=== PATIENT | male | born 1935 | race Caucasian/White ===

== ENCOUNTER 2019-05-16 09:29 | Inpatient (IN) | payer MEDICARE, BC ==
[2019-05-16] MEDS ORDERED: Magnesium Hydroxide LIQ* 30 ML UDC PO PRN (12:00)
[2019-05-16] MEDS ORDERED: Acetaminophen TAB* 325 MG PO PRN (12:00)
[2019-05-16] MEDS ORDERED: Senna TAB 8.6 mg* TAB PO PRN (12:00)
[2019-05-16] MEDS: Carbidopa/Levodop 25/100 MG TAB(*) PO SCH ×2 (12:29→17:30)
[2019-05-16] MEDS: Cholecalciferol TAB* 1000 UNITS PO SCH (12:29)
[2019-05-16] MEDS: Cyanocobalamin TAB* 500 MCG PO SCH (17:30)
[2019-05-16] MEDS: ATORVASTATIN 10 MG PO SCH (20:09)
[2019-05-16] MEDS: Heparin VIAL(*) 5000 UNITS/ML VIAL (FIVE THOUSAND) SUBCUT SCH (20:10)
[2019-05-16] MEDS: Docusate CAP* 100 MG PO SCH (20:10)
--- NOTE | 2019-05-16 22:03 | HP ---
ADMISSION HISTORY AND PHYSICAL: DATE OF ADMISSION: 05/16/19 HISTORY OF ILLNESS: Fernando Levi is an 83-year-old white male. He has a history of Parkinson's disease which he has had for at least the past 15 years. He also has a history of coronary artery disease. The patient was admitted to the hospital on 05/10/19. He was admitted and tested positive for influenza. He was placed on Tamiflu, which was adjusted for his renal function. He was continued on that for 5 days. He remained on his usual regimen of carbidopa and levodopa but was in bed for a prolonged period of time. He has baseline thrombocytopenia, which worsened with the illness but then seemed to improve. He did receive IV hydration. He was noted to have some difficulty with kidney function while on the acute service. His creatinine is elevated at baseline but when he came in his creatinine was 1.61, which improved to 1.24 after hydration. The patient was weaker than usual and had more balance issues because of his prolonged period of bed rest. He was felt to have physical therapy and occupational therapy needs. He is now being admitted for inpatient rehab so he might return to independent living. PAST MEDICAL HISTORY: Significant for Parkinson's disease. He also has a history of osteopenia, hyperlipidemia, prostatic hypertrophy, and a coronary artery bypass graft in 2010. He follows with Dr. Becker for his heart disease. CURRENT MEDICATIONS: Include: 1. Sinemet. 2. Amantadine. 3. Baby aspirin every day. 4. Lipitor. ALLERGIES: The patient has no known drug allergies. FAMILY HISTORY: Noncontributory. He did have a father who had a history of coronary artery disease. SOCIAL HISTORY: He lives in [facility] with his . It is a one- level condo. He is a retired psychologist. REVIEW OF SYSTEMS: No current shortness of breath or chest pain. PHYSICAL EXAMINATION VITAL SIGNS: The patient's temperature is 97.6, blood pressure is 100/48, pulse 56, respirations 18. HEENT: He does have Parkinson-like facies. NECK: Supple. LUNGS: Sounded clear to auscultation bilaterally. HEART: Heart sounds are regular. S1 and S2 are audible. ABDOMEN: Soft and nontender. EXTREMITIES: He did have perhaps some cogwheeling. Peripheral pulses were intact. NEUROLOGIC: The patient was awake, alert, oriented. Muscle strength appeared to be close to 5/5. He did have some difficulty with tremor. FUNCTIONAL EXAM: He transfers with contact guard to min assist. ASSESSMENT: 1. Parkinson's disease. 2. Influenza. PLAN: We are going to integrate him into a comprehensive and therapeutic rehab program with the following goals: 1. Physical Therapy will work with the patient. They are going to work on functional transfer training, ambulation training with a walker, work on his balance. 2. Occupational Therapy will see the patient, work on his activities of daily living including toileting and toilet transfers. 3. Heparin for DVT prophylaxis. 4. We will continue with Sinemet and his amantadine for his Parkinson's disease. 5. Continue aspirin and Lipitor for coronary artery disease. 6. His bowels will be regulated. 7. Advance directives: The patient has a MOLST. He has DNR. 8. Cash Sales Audit Clerk will be closely involved to make sure that any services and equipment that patient requires are in place prior to discharge. 9. Family training as appropriate. 10. Home with appropriate services. ESTIMATED LENGTH OF STAY: 7 to 10 days. [id number]/CPS #: [id number] MICHELLE
[2019-05-17] MEDS: Heparin VIAL(*) 5000 UNITS/ML VIAL (FIVE THOUSAND) SUBCUT SCH ×2 (07:35→20:44)
[2019-05-17] MEDS: AMANTADINE 100 MG PO SCH (07:37)
[2019-05-17] MEDS: Aspirin EC TAB* 81 MG TAB.EC PO SCH (07:38)
[2019-05-17] MEDS: Carbidopa/Levodop 25/100 MG TAB(*) PO SCH ×3 (07:38→17:21)
[2019-05-17] MEDS: Docusate CAP* 100 MG PO SCH ×2 (07:39→19:34)
--- NOTE | 2019-05-17 12:27 | PMRUTEAM ---
PMRU: Team Meeting Current Status: Physical Therapy: Current Status Current Rolling Status Supervision/Touching Current Supine <-> Sit Status Supervision/Touching Current Sit <-> Stand Status Partial/Moderate Current Bed <-> Chair Status Partial/Moderate Transfer/Bed Mobility Rolling Walker Recommended Devices Current Picking Up Object Partial/Moderate Status Current Car Transfer Status Partial/Moderate Current Ambulation Assistance Partial/Moderate Status Ambulation Assistive Device Rolling Walker Ambulation Conditions Two or More Turns,Uneven Surfaces Current Ambulation Distance 120' Current Wheelchair Propulsion Not Applicable Ability Status Current Stair Climbing Status Supervision/Touching Stair Climbing Assistive Left Railing,Right Railing Devices Number of Stairs Climbed 10 Current Curb Assistance Status Supervision/Touching Occupational Therapy: Current Status Current Upper Body Dressing Partial/Moderate Status Current Lower Body Dressing Partial/Moderate Status Current Footwear Status Partial/Moderate Current Grooming Status Setup or Clean-up Assist Current Toileting Status Supervision/Touching Current Toilet Transfer Status Supervision/Touching Current Eating Status Setup or Clean-up Assist Nursing: Current Status Skin Deviations [Bilateral Other Buttocks] Skin Deviation Description [ intact Bilateral Buttocks] Bladder Current Status voiding in br Bowel Current Status last bm 05/16/19. declined colace Nutrition Current Status appetite good Medication Current Status no pain meds given. requests sinemet to given on time Rec Therapy: Current Status Summary of Assessment and Recreation therapy services will be introduce Clinical Impression today 05/17/19 Nutrition: Current Status Monitoring new adm; full nutrition assessment planned 05/23 per NDS protocol, unless otherwise requested. Tentative nutrition goals as outlined below. Goals: Physical Therapy: Goals Goals to Be Accomplished in ( 7-10 Days) Goal: Rolling Assistance Independent Goal Supine <-> Sit Status Independent Goal Sit <-> Stand Status Independent Goal Bed <-> Chair Status Independent Transfer/Bed Mobility Rolling Walker Recommended Devices Goal: Picking Up Object Independent Goal: Car Transfer Status Setup or Clean-up Assist Goal: Ambulation Assistance Independent Ambulation Assistive Devices Rolling Walker Ambulation Distance (ft) 150' Goal: Wheelchair Propulsion Not Applicable Ability Goal: Stairs Assistance Independent Stairs Recommended Devices Two Rails Number of Stairs 12 Goal: Curb Assistance Independent Goal: Home Exercise Program Independent Assistance Occupational Therapy: Goals Goals to be Completed in (Days 7 ) Goal Upper Body Dressing Independent Routine Goal Lower Body Dressing Independent Routine Goal Footwear Status Independent Goal Bathing Routine (OT) Supervision/Touching Goal Grooming Routine Independent Goal Toilet Hygiene and Independent Clothing Management Routine Goal Toilet Transfer Routine Independent Goal Functional Transfers for Independent ADL Goal Feeding Routine Independent Nutrition: Goals Intervention Goals 1. adequate po intake to support hydration and lean body mass without wt loss 2. pt will tolerate least-restrictive diet texture without difficulty chewing or swallowing 3. maintain serum electrolytes WNL 4. regulation of bowel pattern; no c/o constipation (or diarrhea) Nursing: Goals Bladder Goal independent Bowel Goal independent. Nutrition Goal 100% of all meals consumed Medication Goal independent Care Plan: Care Plan ADL's - Improve/Maintain Start: 05/16/19 11:53 Freq: DAILY@699,0 Status: Active Target: 05/17/19 Protocol: Activity Type Activity Date Activity User E-Sign Co-Sign Detail Recorded Client Recorded Date Recorded By Document 05/16/19 15:48 [id number] [id number] 05/16/19 15:48 [id number] 05/16/19 15:48 PMRU Outcome: ADL's/ADL Transfers Orders/Interventions Occupational Therapy Evaluation & Treatment Communication Tool in Patient Room Device Yes Address Deficits Secondary To: deconditioning, h/o Parkinson' s Patient to receive OT 5x/wk for 60-120 Therex min/day Self Care Management Group Therapy Neuromuscular ReEducation UE/LE ADL's with Assist Yes: Rolanda except S for bathing ADL Transfers with Assist Yes: Rolanda Toileting: Transfers,Clothing Management Yes: Rolanda ,Hygeine w/Assist Other Outcome/Goals Pt participated well in treatment session, reports normally using 4# dumbells when working out, however reported feeling very challenged during session using 2# dumbells. Will attempt to work pt back to normal routine as pt able to tolerate. Progression Toward Outcome/Goals Goal Initiation Cardiovascular- Improve/Maintain Start: 05/16/19 11:41 Freq: DAILY@699,0 Status: Active Target: 05/23/19 Protocol: Activity Type Activity Date Activity User E-Sign Co-Sign Detail Recorded Client Recorded Date Recorded By Document 05/17/19 08:00 [id number] 05/17/19 09:21 [id number] 05/17/19 08:00 PMRU Outcome: Cardiovascular Vital Signs q Shift for 48hrs Then BID Yes Daily Weight Ordered No Current Cardiovascular Outcome/Goal Maintain/ Achieve Baseline HR, BP , Perfusion Improve HR Within Prescribed Parameters Maintain/ Improve Perfusion Free of Abnormal Cardiac Symptoms Progression Toward Outcome/Goal Progressing DVT Prophylaxis- Improve/Maintain Start: 05/16/19 11:41 Freq: DAILY@0700,1900 Status: Active Target: 05/23/19 Protocol: Activity Type Activity Date Activity User E-Sign Co-Sign Detail Recorded Client Recorded Date Recorded By Document 05/17/19 08:00 [id number] 05/17/19 09:21 [id number] 05/17/19 08:00 PMRU Outcome: DVT Prophylaxis Current DVT Outcome/Goals Remains Free of DVT Complies with DVT Prophylaxis /Treatment Demonstrates Knowledge of DVT Prevention/ Treatment TEDS Stockings on Every AM, Off at HS Other DVT Other Outcome/Goals heparin given this am per order Progression Toward Outcome/Goals Progressing Discharge Planning - Improve/Maintain Start: 05/16/19 11:41 Freq: DAILY@[id number] Status: Active Target: 05/23/19 Protocol: Activity Type Activity Date Activity User E-Sign Co-Sign Detail Recorded Client Recorded Date Recorded By Document 05/17/19 08:00 [id number] 05/17/19 09:21 [id number] 05/17/19 08:00 PMRU Outcome: Discharge Planning Current Discharge Planning Outcome/Goals Demonstrates Understanding of Discharge Plan Homecare Referral - See Comment Progression Toward Outcome/Goals Progressing Education-Improve/Maintain Start: 05/16/19 11:41 Freq: DAILY@[id number] Status: Active Target: 05/23/19 Protocol: Activity Type Activity Date Activity User E-Sign Co-Sign Detail Recorded Client Recorded Date Recorded By Document 05/17/19 08:00 [id number] 05/17/19 09:21 [id number] 05/17/19 08:00 PMRU Outcome: Education Current Education Outcome/Goals Demonstrate/ Verbalize Understanding of Written Discharge Instructions Demonstrates Skills Encourage Questions Progression Toward Outcome/Goals Progressing /GI-Improve/Maintain Start: 05/16/19 11:41 Freq: DAILY@07,1900 Status: Active Target: 05/23/19 Protocol: Activity Type Activity Date Activity User E-Sign Co-Sign Detail Recorded Client Recorded Date Recorded By Document 05/17/19 08:00 [id number] 05/17/19 09:21 [id number] 05/17/19 08:00 PMRU Outcome: Genitourinary/ Gastrointestinal Current Gastrointestinal Outcome/Goals Maintain/ Achieve Bowel Regularity in Accordance with Pt's Baseline Remain Free of Emesis Prevent Constipation Laxatives as Ordered Other GI Outcome/Goals declined bowel meds Progression Toward Outcome/Goals Progressing Current Genitourinary Outcome/Goals Maintain/ Achieve Urinary Continence Maintain/ Achieve Adequate Urinary Output Remain Free of Hospital- Acquired UTI Progression Toward Outcome/Goals Progressing Medication Administration Start: 05/16/19 11:41 Freq: DAILY@[id number] Status: Active Target: 05/23/19 Protocol: Activity Type Activity Date Activity User E-Sign Co-Sign Detail Recorded Client Recorded Date Recorded By Document 05/17/19 08:00 [id number] 05/17/19 09:21 [id number] 05/17/19 08:00 PMRU Outcome: Medication Administration Assess Patient Knowledge/Teach Med Yes Education for all Meds Current Dog Walker Outcome/Goals Patient Independent with Medication Administration at Home Demonstrates Understanding Progression Towards Outcome/Goals Progressing Is Patient Going Home on Lovenox? No Mobility- Improve/Maintain Start: 05/16/19 15:35 Freq: DAILY@699,[id number] Status: Active Target: 05/17/19 Protocol: Activity Type Activity Date Activity User E-Sign Co-Sign Detail Recorded Client Recorded Date Recorded By Document 05/16/19 15:35 [id number] 05/16/19 15:36 [id number] 05/16/19 15:35 PMRU Outcome: Mobility Physical Therapy Evaluation and Yes Treatment Activity OOB with Assistance Yes WBAT Yes NWB No TTWB No Device Yes Assistance Yes Patient to be seen 5x/wk for 60-120 min/ Therex day for: Mobility Training Gait Training Balance Other Other Therapy Comment Discharge training, discharge planning Current Mobility Outcome/Goals Maintain/ Achieve Baseline Mobility Status Improve Mobility Status Demonstrates Proper Use of Assistive Devices Free from Complications of Immobility Progression Toward Outcome/Goals Goal Initiation Bed Mobility Yes: Independent Transfers Yes: Independent with RW Gait x ft Yes: 150' Independent with RW W/C Mobility x ft No Up/Down Stairs Yes: 12 with 2 rails Independent With HEP Yes: Independent Neurological- Improve/Maintain Start: 05/16/19 11:41 Freq: DAILY@699,[id number] Status: Active Target: 05/23/19 Protocol: Activity Type Activity Date Activity User E-Sign Co-Sign Detail Recorded Client Recorded Date Recorded By Document 05/17/19 08:00 [id number] 05/17/19 09:21 [id number] 05/17/19 08:00 PMRU Outcome: Neurological Weakness/Aphasia Weakness Current Neurological Outcome/Goals Maintain/ Achieve Baseline Neurological Status Improve Neurological Status Prevent Avoidable Neurological Decline Demonstrate Knowledge of Prevention/Tx of Neuro Disorders/ Complication Maintain/ Improve Strength/ROM Progression Toward Outcome/Goals Progressing Rec Therapy- Improve/Maintain Start: 05/16/19 16:47 Freq: DAILY@0700,1900 Status: Active Target: 05/17/19 Protocol: Activity Type Activity Date Activity User E-Sign Co-Sign Detail Recorded Client Recorded Date Recorded By Document 05/16/19 16:47 [id number] 05/16/19 16:47 [id number] 05/16/19 16:47 PMRU Outcome: Recreation Therapy Current Rec Ther Outcome/Goals Complete Rec Therapy Assessment Meet with Patient Regularly for Support Encourage Leisure Involvement Progression Toward Outcome/Goals Goal Initiation Respiratory - Improve/Maintain Start: 05/16/19 11:41 Freq: DAILY@0700,1900 Status: Active Target: 05/23/19 Protocol: Activity Type Activity Date Activity User E-Sign Co-Sign Detail Recorded Client Recorded Date Recorded By Document 05/17/19 08:00 [id number] 05/17/19 09:21 [id number] 05/17/19 08:00 PMRU Outcome: Respiratory Does Patient Have a Trach No Current Respiratory Outcome/Goals Maintain/ Improve Baseline Respiratory Status Maintain/ Improve Activity Tolerance Prevent Pneumonia/ Atelectasis Other Respiratory Outcome/Goals encouraged IS Progression Toward Outcome/Goals Progressing Safety- Improve/Maintain Start: 05/16/19 11:07 Freq: DAILY@0700,1900 Status: Active Target: 05/23/19 Protocol: Activity Type Activity Date Activity User E-Sign Co-Sign Detail Recorded Client Recorded Date Recorded By Document 05/17/19 08:00 [id number] 05/17/19 09:21 [id number] 05/17/19 08:00 PMRU Outcome: Safety Current Safety Outcome/Goals Remain Free of Injury or Harm Cooperates with Safety Measures for Least Restrictive Environment Prevent Falls/ Injury Progression Toward Outcome/Goals Progressing - Interdisciplinary Staff Present Help Desk Specialist/Social Work Staff Present: Kayla Oconnor LMSW Nursing Staff Present: Yaima Kirkland RN OT Staff Present: Daphnie Gannon PT Staff Present: Aranza Paulson Rec Therapy Staff Present: Alesha Chilel Medicine Note: Length of Stay: 3 days Anticipated Discharge Destination: Tentative Discharge Date: 05/20/19 Discharged to: Home
[2019-05-17] MEDS: Cholecalciferol TAB* 1000 UNITS PO SCH (13:06)
[2019-05-17] MEDS: Cyanocobalamin TAB* 500 MCG PO SCH (17:21)
--- NOTE | 2019-05-17 19:46 | PN ---
Progress Note Date of Service: 05/17/19 Note: JAVAD SALGADO was visited. Therapy notes read and reviewed. He was discussed in interdisciplinary team rounds. He is getting back to his baseline but he has trouble with turns Current Medications: Active Medications Generic Name Dose Route Start Last Admin Trade Name Freq PRN Reason Stop Dose Admin Acetaminophen 650 mg 05/16/19 12:00 Tylenol Tab* PO Q6H PRN MILD PAIN or TEMP > 100.4 Amantadine HCl 100 mg 05/17/19 07:30 05/17/19 07:37 Symmetrel Cap* PO 100 mg 0730 NOEL Administration Aspirin 81 mg 05/17/19 09:00 05/17/19 07:38 Aspirin Ec Tab* PO 81 mg DAILY NOEL Administration Atorvastatin Calcium 10 mg 05/16/19 21:00 05/16/19 20:09 Lipitor* PO 10 mg Q48H NOEL Administration Carbidopa/Levodopa 1 tab 05/16/19 17:30 05/17/19 17:21 Sinemet 25/100 Tab(*) PO 1 tab 1730 NOEL Administration Carbidopa/Levodopa 2 tab 05/16/19 12:30 05/17/19 13:06 Sinemet 25/100 Tab(*) PO 2 tab 0730,1230 NOEL Administration Cholecalciferol 1,000 units 05/16/19 12:30 05/17/19 13:06 Vitamin D Tab* PO 1,000 units 1230 NOEL Administration Cyanocobalamin 1,000 mcg 05/16/19 17:30 05/17/19 17:21 Vitamin B12 Tab* PO 1,000 mcg 1730 NOEL Administration Docusate Sodium 100 mg 05/16/19 21:00 05/17/19 19:34 Colace Cap* PO Not Given BID NOEL Heparin Sodium (Porcine) 5,000 units 05/16/19 21:00 05/17/19 07:35 Heparin Vial(*) SUBCUT 5,000 units BID NOEL Administration Magnesium Hydroxide 30 ml 05/16/19 12:00 Milk Of Magnesia Liq* PO Q6H PRN CONSTIPATION Senna 2 tab 05/16/19 12:00 Senokot 8.6 Mg Tab* PO BEDTIME PRN CONSTIPATION Vital Signs: Vital Signs Temp Pulse Resp BP Pulse Ox 97.5 F 65 16 111/63 99 05/17/19 14:26 05/17/19 14:26 05/17/19 14:26 05/17/19 14:26 05/17/19 18:02 Exam: HEENT: Parkinson facies LUNGS: Clear HEART: Reg rhythm ABDOMEN: Soft EXTRMITIES: Increased tone. Tremor in both arms NEUROLOGIC: Alert and oriented. Sensation intact. Strength close to 5/5 Assessment/Plan: 1. Parkinson's Disease: Sinemet/Amantadine. PT/OT. Follow up with Dr. Wilkes 2. Coronary Artery Disease: Lipitor/ASA 3. DVT Prophylaxis: Heparin S/Q 4. Advance Directives: DNR. Has MOLST 5. Thrombocytopenia: Check labs in am 6. Influenza: Received Tamiflu 05/17/19 19:47 05/17/19 19:48
[2019-05-18 05:00] LABS: Hematocrit 41 % (42-52); Hemoglobin 13.8 g/dL (14.0-18.0); Mean Corpuscular HGB Conc 34 g/dL (31-36); Mean Corpuscular Hemoglobin 31 pg (27-31); Mean Corpuscular Volume 93 fL (80-94); Mean Platelet Volume 9.8 fL (7.4-10.4); Platelet Count 208 10^3/uL (150-450); Red Blood Count 4.38 10^6 /uL (4.18-5.48); Red Cell Distribution Width 14 % (10-15); White Blood Count 4.6 10^3/uL (3.5-10.8)
[2019-05-18 05:11] LABS: Albumin 3.5 g/dL (3.2-5.2); Albumin/Globulin Ratio 1.2 (1-3); BUN/Creatinine Ratio 16.4 (8-20); Calcium 9.2 mg/dL (8.6-10.3); EGFR African American 55.7 (>60); Globulin 2.9 g/dL (2-4); Potassium 4.4 mmol/L (3.5-5.0); Total Bilirubin 0.5 mg/dL (0.2-1.0); Total Protein 6.4 g/dL (6.4-8.9)
[2019-05-18 05:34] LABS: ABS Eosinophils 0.2 10^3/ul (0-0.6); ABS Lymphocytes 1.3 10^3/ul (1.0-4.8); ABS Monocytes 0.6 10^3/ul (0-0.8); ABS Neutrophils 2.4 10^3/ul (1.5-7.7); Lymphocyte % 29.2 %; Nucleated Red Blood Cells % 0.1
[2019-05-18] MEDS: Carbidopa/Levodop 25/100 MG TAB(*) PO SCH ×3 (08:12→17:55)
[2019-05-18] MEDS: AMANTADINE 100 MG PO SCH (08:12)
[2019-05-18] MEDS: Docusate CAP* 100 MG PO SCH ×2 (08:13→19:31)
[2019-05-18] MEDS: Aspirin EC TAB* 81 MG TAB.EC PO SCH (08:13)
[2019-05-18] MEDS: Heparin VIAL(*) 5000 UNITS/ML VIAL (FIVE THOUSAND) SUBCUT SCH ×2 (08:13→20:42)
[2019-05-18] MEDS: Cholecalciferol TAB* 1000 UNITS PO SCH (13:05)
[2019-05-18] MEDS: Cyanocobalamin TAB* 500 MCG PO SCH (17:55)
--- NOTE | 2019-05-18 18:16 | PN ---
Progress Note Date of Service: 05/18/19 Note: JAVAD SALGADO was visited. Therapy notes read and reviewed. Javad would like to try melatonin at bedtime for sleep. He thinks his walking is steadier. He was able able to walk today without his walking sticks. Current Medications: Active Medications Generic Name Dose Route Start Last Admin Trade Name Freq PRN Reason Stop Dose Admin Acetaminophen 650 mg 05/16/19 12:00 Tylenol Tab* PO Q6H PRN MILD PAIN or TEMP > 100.4 Amantadine HCl 100 mg 05/17/19 07:30 05/18/19 08:12 Symmetrel Cap* PO 100 mg 0730 NOEL Administration Aspirin 81 mg 05/17/19 09:00 05/18/19 08:13 Aspirin Ec Tab* PO 81 mg DAILY NOEL Administration Atorvastatin Calcium 10 mg 05/16/19 21:00 05/16/19 20:09 Lipitor* PO 10 mg Q48H NOEL Administration Carbidopa/Levodopa 1 tab 05/16/19 17:30 05/18/19 17:55 Sinemet 25/100 Tab(*) PO 1 tab 1730 NOEL Administration Carbidopa/Levodopa 2 tab 05/16/19 12:30 05/18/19 13:05 Sinemet 25/100 Tab(*) PO 2 tab 0730,1230 NOEL Administration Cholecalciferol 1,000 units 05/16/19 12:30 05/18/19 13:05 Vitamin D Tab* PO 1,000 units 1230 NOEL Administration Cyanocobalamin 1,000 mcg 05/16/19 17:30 05/18/19 17:55 Vitamin B12 Tab* PO 1,000 mcg 1730 NOEL Administration Docusate Sodium 100 mg 05/16/19 21:00 05/18/19 08:13 Colace Cap* PO Not Given BID NOEL Heparin Sodium (Porcine) 5,000 units 05/16/19 21:00 05/18/19 08:13 Heparin Vial(*) SUBCUT 5,000 units BID NOEL Administration Magnesium Hydroxide 30 ml 05/16/19 12:00 Milk Of Magnesia Liq* PO Q6H PRN CONSTIPATION Senna 2 tab 05/16/19 12:00 Senokot 8.6 Mg Tab* PO BEDTIME PRN CONSTIPATION Vital Signs: Vital Signs Temp Pulse Resp BP Pulse Ox 97.8 F 64 22 102/45 98 05/18/19 15:05 05/18/19 16:07 05/18/19 15:05 05/18/19 15:05 05/18/19 16:11 Lab Results: Laboratory Results - last 24 hr 05/18/19 05/18/19 04:49 04:49 WBC 4.6 RBC 4.38 Hgb 13.8 L Hct 41 L MCV 93 MCH 31 MCHC 34 RDW 14 Plt Count 208 MPV 9.8 Neut % (Auto) 52.5 Lymph % (Auto) 29.2 [place] % (Auto) 12.9 Eos % (Auto) 5.0 Baso % (Auto) 0.4 Absolute Neuts (auto) 2.4 Absolute Lymphs (auto) 1.3 Absolute Monos (auto) 0.6 Absolute Eos (auto) 0.2 Absolute Basos (auto) 0.0 Absolute Nucleated RBC 0.0 Nucleated RBC % 0.1 Sodium 139 Potassium 4.4 Chloride 106 Carbon Dioxide 31 Anion Gap 2 BUN 24 Creatinine 1.46 H Est GFR ( Amer) 55.7 Est GFR (Non-Af Amer) 46.0 BUN/Creatinine Ratio 16.4 Glucose 86 Calcium 9.2 Total Bilirubin 0.50 AST 24 ALT 16 Alkaline Phosphatase 42 Total Protein 6.4 Albumin 3.5 Globulin 2.9 Albumin/Globulin Ratio 1.2 Exam: HEENT: Parkinson facies LUNGS: Clear HEART: Reg rhythm ABDOMEN: Soft EXTRMITIES: Increased tone. Tremor in both arms NEUROLOGIC: Alert and oriented. Sensation intact. Strength close to 5/5 Assessment/Plan: 1. Parkinson's Disease: Sinemet/Amantadine. PT/OT. Follow up with Dr. Wilkes 2. Coronary Artery Disease: Lipitor/ASA 3. DVT Prophylaxis: Heparin S/Q 4. Advance Directives: DNR. Has MOLST 5. Thrombocytopenia: Check labs in am 6. Influenza: Received Tamiflu 7. Insomnia: Try melatonin 05/18/19 18:17
[2019-05-18] MEDS: Melatonin 3 MG TAB PO PRN (20:41)
[2019-05-18] MEDS: ATORVASTATIN 10 MG PO SCH (20:41)
[2019-05-19] MEDS: Aspirin EC TAB* 81 MG TAB.EC PO SCH (08:15)
[2019-05-19] MEDS: Carbidopa/Levodop 25/100 MG TAB(*) PO SCH ×3 (08:15→17:26)
[2019-05-19] MEDS: Heparin VIAL(*) 5000 UNITS/ML VIAL (FIVE THOUSAND) SUBCUT SCH ×2 (08:15→21:05)
[2019-05-19] MEDS: Docusate CAP* 100 MG PO SCH ×2 (08:15→21:05)
[2019-05-19] MEDS: AMANTADINE 100 MG PO SCH (08:15)
[2019-05-19] MEDS: Cholecalciferol TAB* 1000 UNITS PO SCH (12:49)
[2019-05-19 16:56] VITALS: BP 111/46
[2019-05-19] MEDS: Cyanocobalamin TAB* 500 MCG PO SCH (17:26)
--- NOTE | 2019-05-19 18:54 | PN ---
Progress Note Date of Service: 05/19/19 Note: JAVAD SALGADO was visited. Therapy notes read and reviewed. He feels like he is ready for discharge tomorrow and does not need any additional equipment. Current Medications: Active Medications Generic Name Dose Route Start Last Admin Trade Name Freq PRN Reason Stop Dose Admin Acetaminophen 650 mg 05/16/19 12:00 Tylenol Tab* PO Q6H PRN MILD PAIN or TEMP > 100.4 Amantadine HCl 100 mg 05/17/19 07:30 05/19/19 08:15 Symmetrel Cap* PO 100 mg 0730 NOEL Administration Aspirin 81 mg 05/17/19 09:00 05/19/19 08:15 Aspirin Ec Tab* PO 81 mg DAILY NOEL Administration Atorvastatin Calcium 10 mg 05/16/19 21:00 05/18/19 20:41 Lipitor* PO 10 mg Q48H NOEL Administration Carbidopa/Levodopa 1 tab 05/16/19 17:30 05/19/19 17:26 Sinemet 25/100 Tab(*) PO 1 tab 1730 NOEL Administration Carbidopa/Levodopa 2 tab 05/16/19 12:30 05/19/19 12:49 Sinemet 25/100 Tab(*) PO 2 tab 0730,1230 NOEL Administration Cholecalciferol 1,000 units 05/16/19 12:30 05/19/19 12:49 Vitamin D Tab* PO 1,000 units 1230 NOEL Administration Cyanocobalamin 1,000 mcg 05/16/19 17:30 05/19/19 17:26 Vitamin B12 Tab* PO 1,000 mcg 1730 NOEL Administration Docusate Sodium 100 mg 05/16/19 21:00 05/19/19 08:15 Colace Cap* PO Not Given BID NOEL Heparin Sodium (Porcine) 5,000 units 05/16/19 21:00 05/19/19 08:15 Heparin Vial(*) SUBCUT 5,000 units BID NOEL Administration Magnesium Hydroxide 30 ml 05/16/19 12:00 Milk Of Magnesia Liq* PO Q6H PRN CONSTIPATION Melatonin 3 mg 05/18/19 18:18 05/18/19 20:41 Melatonin PO 3 mg BEDTIME PRN Administration INSOMNIA Senna 2 tab 05/16/19 12:00 Senokot 8.6 Mg Tab* PO BEDTIME PRN CONSTIPATION Vital Signs: Vital Signs Temp Pulse Resp BP Pulse Ox 98.3 F 64 22 111/46 98 05/19/19 16:55 05/19/19 16:55 05/19/19 16:55 05/19/19 16:55 05/19/19 17:31 Exam: HEENT: Parkinson facies LUNGS: Clear HEART: Reg rhythm ABDOMEN: Soft EXTRMITIES: Increased tone. Tremor in both arms NEUROLOGIC: Alert and oriented. Sensation intact. Strength close to 5/5 Assessment/Plan: 1. Parkinson's Disease: Sinemet/Amantadine. PT/OT. Follow up with Dr. Wilkes 2. Coronary Artery Disease: Lipitor/ASA 3. DVT Prophylaxis: Heparin S/Q 4. Advance Directives: DNR. Has MOLST 5. Thrombocytopenia: Platelets normal 6. Influenza: Received Tamiflu 7. Insomnia: Try melatonin 05/19/19 18:54 05/19/19 18:54
[2019-05-19] MEDS: Melatonin 3 MG TAB PO PRN (21:05)
[2019-05-20] MEDS: AMANTADINE 100 MG PO SCH (07:18)
[2019-05-20] MEDS: Carbidopa/Levodop 25/100 MG TAB(*) PO SCH (07:18)
[2019-05-20] MEDS: Aspirin EC TAB* 81 MG TAB.EC PO SCH (07:18)
[2019-05-20] MEDS: Docusate CAP* 100 MG PO SCH (07:19)
[2019-05-20] MEDS: Heparin VIAL(*) 5000 UNITS/ML VIAL (FIVE THOUSAND) SUBCUT SCH (07:19)
== END 2019-05-20 11:15 | disposition home health service (06) | DRG 57 ==
LOC: PMRU 10:34
PROVIDERS: ADMIT Physical Medicine & Rehabilitation; ATTEND Physical Medicine & Rehabilitation
PROC: F07Z5ZZ Bed Mobility Treatment (ICD-10-PCS; principal; 2019-05-16)
PROC: F07Z9ZZ Gait Training/Functional Ambulation Treatment (ICD-10-PCS; 2019-05-16)
PROC: F07Z8ZZ Transfer Training Treatment (ICD-10-PCS; 2019-05-16)
PROC: F07Z4ZZ Wheelchair Mobility Treatment (ICD-10-PCS; 2019-05-16)
PROC: F08Z0ZZ Bathing/Showering Techniques Treatment (ICD-10-PCS; 2019-05-16)
PROC: F08Z1ZZ Dressing Techniques Treatment (ICD-10-PCS; 2019-05-16)
PROC: F08Z3ZZ Feeding/Eating Treatment (ICD-10-PCS; 2019-05-16)
PROC: F08Z2ZZ Grooming/Personal Hygiene Treatment (ICD-10-PCS; 2019-05-16)
DX: G20 Parkinson's disease (principal); I25.10 Atherosclerotic heart disease of native coronary artery without angina pectoris; J11.1 Influenza due to unidentified influenza virus with other respiratory manifestations; M85.80 Other specified disorders of bone density and structure, unspecified site; E78.5 Hyperlipidemia, unspecified; N40.0 Benign prostatic hyperplasia without lower urinary tract symptoms; D69.6 Thrombocytopenia, unspecified; G47.00 Insomnia, unspecified; Z95.1 Presence of aortocoronary bypass graft; Z79.82 Long term (current) use of aspirin; Z79.899 Other long term (current) drug therapy; Z82.49 Family history of ischemic heart disease and other diseases of the circulatory system
CPT/HCPCS: 36415; 80053; 85025; A9270-GY; J1644

== ENCOUNTER 2023-11-18 19:25 | Inpatient (IN) ==
[2023-11-18 21:45] LABS: ABS Eosinophils 0.1 10^3/uL (0.0-0.5); ABS Lymphocytes 0.5 10^3/uL (1.0-4.8); ABS Monocytes 0.6 10^3/uL (0.0-1.1); ABS Neutrophils 8.2 10^3/uL (1.5-7.6); Eosinophil % 0.7 %; Hematocrit 36.7 % (38-53); Lymphocyte % 5.1 %; Mean Corpuscular Hemoglobin 30.7 pg (27-33); Mean Corpuscular Hgb Conc 32.8 g/dL (31-36); Mean Corpuscular Volume 93.6 fL (80-97); Mean Platelet Volume 9.9 fL (7.5-11.2); Platelet Count 161 10^3/uL (150-450); Red Blood Count 3.92 10^6/uL (4.06-5.63); Red Cell Distribution Width 15.5 % (12-17); White Blood Count 9.4 10^3/uL (3.6-10.2)
[2023-11-18 21:59] LABS: Activated Partial Thrombo Time 27.8 seconds (26.0-38.0); INR 1.08 (0.83-1.13)
[2023-11-18 22:38] LABS: Albumin 3.9 g/dL (3.2-5.2); Albumin/Globulin Ratio 1.6 (1-3); Calcium 9.1 mg/dL (8.6-10.3); Creatinine, Serum 1.43 mg/dL (0.67-1.17); Globulin 2.5 g/dL (2-4); Potassium 4.5 mmol/L (3.5-5.0); Total Bilirubin 0.6 mg/dL (0.2-1.0); Total Protein 6.4 g/dL (6.4-8.9); eGFR CKD-EPI 46.8 (>60)
[2023-11-19] MEDS ORDERED: Polyethylene Glycol 3350 17 GM PACKET PO PRN (01:54)
[2023-11-19] MEDS ORDERED: Magnesium Hydroxide LIQ 30 ML UDC PO PRN (01:54)
[2023-11-19] MEDS: Carbidopa/Levodop CR 50/200 TAB.CR PO SCH (07:54)
[2023-11-19] MEDS: Mirabegron 25 mg ER TAB (NF) PO SCH (07:55)
[2023-11-19] MEDS ORDERED: Ondansetron 4 mg VIAL 2 MG/ML 2 ml VIAL IV PRN (11:13)
[2023-11-19] MEDS ORDERED: Naloxone 0.4 mg VIAL 0.4 mg/ml 1 ml VIAL IV PRN (11:13)
[2023-11-19] MEDS ORDERED: fentaNYL 100 mcg/2 ml 50 MCG/ML VIAL IV PRN (11:13)
[2023-11-19] MEDS ORDERED: NS 0.45% 1000 ml BAG 1,000 ML IV SCH (12:00)
[2023-11-19] MEDS ORDERED: Lidocaine 2% PF 5 ML VIAL ONE ×2 (13:13→15:47)
[2023-11-19] MEDS ORDERED: Propofol 10 MG/ML 20 ML BTL ONE ×2 (13:13→15:47)
[2023-11-19] MEDS ORDERED: fentaNYL 250 mcg/5 ml 50 MCG/ML 5 ml VIAL (250 MCG) ONE (13:16)
[2023-11-19] MEDS ORDERED: Midazolam 2 mg/2 ml VIAL 1 mg/ml 2 ml VIAL (2 mg) ONE ×2 (13:16→15:47)
[2023-11-19] MEDS ORDERED: Dexamethasone IV 4 MG/ML VIAL 1 ml VIAL ONE ×3 (13:16→16:38)
[2023-11-19] MEDS ORDERED: Ondansetron 4 mg VIAL 2 MG/ML 2 ml VIAL ONE ×2 (13:16→16:38)
[2023-11-19] MEDS ORDERED: Morphine 4 MG/ML VIAL (1 ml) ONE (13:32)
[2023-11-19] MEDS ORDERED: ceFAZolin 2 GM PREMIX 2 GM/50 ML BAG ONE (13:45)
[2023-11-19] MEDS ORDERED: ROPIVACAINE 5 MG/ML 30 ML BTL (0.5%) ONE ×2 (13:55→15:18)
[2023-11-19] MEDS: Buffered Lidocaine 1% SYRIN 1 ml INTRADERM ONE (13:55)
[2023-11-19] MEDS ORDERED: Acetaminophen IV 1 GM/100ML 1,000 MG/100 ML BAG IV ONE (14:01)
[2023-11-19] MEDS: Acetaminophen IV 1 GM/100ML 1,000 MG/100 ML BAG IV ONE (14:04)
[2023-11-19] MEDS ORDERED: fentaNYL 100 mcg/2 ml 50 MCG/ML VIAL ONE (15:20)
[2023-11-19] MEDS ORDERED: Morphine 2 MG/ML SYRINGE IV PRN (20:12)
[2023-11-19] MEDS: Lactated Ringers 1000 ml BAG 1,000 ML IV SCH (21:21)
[2023-11-20] MEDS: ceFAZolin 2 GM in NS PREMIX 2 GM/100 ML BAG IVPB SCH ×2 (01:10→01:11)
[2023-11-20] MEDS: Lactated Ringers 1000 ml BAG 1,000 ML IV SCH (01:13)
[2023-11-20 06:52] LABS: ABS Lymphocytes 0.2 10^3/uL (1.0-4.8); ABS Monocytes 0.9 10^3/uL (0.0-1.1); ABS Neutrophils 11.3 10^3/uL (1.5-7.6); Hematocrit 25.3 % (38-53); Hemoglobin 8.6 g/dL (13.2-16.3); Mean Corpuscular Hemoglobin 31.8 pg (27-33); Mean Corpuscular Hgb Conc 34.1 g/dL (31-36); Mean Corpuscular Volume 93.1 fL (80-97); Mean Platelet Volume 10.2 fL (7.5-11.2); Platelet Count 119 10^3/uL (150-450); Red Blood Count 2.72 10^6/uL (4.06-5.63); Red Cell Distribution Width 14.8 % (12-17); White Blood Count 12.4 10^3/uL (3.6-10.2)
[2023-11-20 07:31] LABS: Calcium 8.5 mg/dL (8.6-10.3); Creatinine, Serum 1.88 mg/dL (0.67-1.17); Potassium 5.1 mmol/L (3.5-5.0); eGFR CKD-EPI 33.7 (>60)
[2023-11-20] MEDS: NS 0.9% 500 ml BAG 500 ML IV ONE (13:09)
[2023-11-20] MEDS: Enoxaparin 40 MG/0.4 ML SYR SUBCUT SCH (13:53)
[2023-11-20] MEDS: ceFAZolin 2 GM PREMIX 2 GM/50 ML BAG IVPB SCH (15:25)
[2023-11-21 05:55] LABS: ABS Lymphocytes 0.9 10^3/uL (1.0-4.8); ABS Monocytes 1.1 10^3/uL (0.0-1.1); ABS Neutrophils 7.3 10^3/uL (1.5-7.6); ABS Nucleated RBC 0.01 10^3/ul; Eosinophil % 0.1 %; Hematocrit 23.4 % (38-53); Hemoglobin 7.9 g/dL (13.2-16.3); Lymphocyte % 9.6 %; Mean Corpuscular Hemoglobin 31.6 pg (27-33); Mean Corpuscular Hgb Conc 33.9 g/dL (31-36); Mean Corpuscular Volume 93.1 fL (80-97); Mean Platelet Volume 10.7 fL (7.5-11.2); Nucleated Red Blood Cells % 0.1 %/100WBC (0.0-0.8); Platelet Count 127 10^3/uL (150-450); Red Blood Count 2.51 10^6/uL (4.06-5.63); Red Cell Distribution Width 15.4 % (12-17); White Blood Count 9.3 10^3/uL (3.6-10.2)
[2023-11-21 06:11] LABS: Calcium 8.6 mg/dL (8.6-10.3); Creatinine, Serum 1.73 mg/dL (0.67-1.17); Potassium 4.5 mmol/L (3.5-5.0); eGFR CKD-EPI 37.3 (>60)
[2023-11-21] MEDS: Enoxaparin 30 MG/0.3 ML SYR SUBCUT SCH (14:47)
[2023-11-22 06:20] LABS: ABS Lymphocytes 0.5 10^3/uL (1.0-4.8); ABS Monocytes 0.7 10^3/uL (0.0-1.1); ABS Neutrophils 4.7 10^3/uL (1.5-7.6); ABS Nucleated RBC 0.01 10^3/ul; Eosinophil % 0.2 %; Hematocrit 19.5 % (38-53); Hemoglobin 6.5 g/dL (13.2-16.3); Mean Corpuscular Hemoglobin 31.3 pg (27-33); Mean Corpuscular Hgb Conc 33.5 g/dL (31-36); Mean Corpuscular Volume 93.4 fL (80-97); Mean Platelet Volume 10.2 fL (7.5-11.2); Nucleated Red Blood Cells % 0.1 %/100WBC (0.0-0.8); Platelet Count 123 10^3/uL (150-450); Red Blood Count 2.09 10^6/uL (4.06-5.63); Red Cell Distribution Width 15.3 % (12-17); White Blood Count 5.9 10^3/uL (3.6-10.2)
[2023-11-22 06:38] LABS: Calcium 8.2 mg/dL (8.6-10.3); Creatinine, Serum 1.58 mg/dL (0.67-1.17); Potassium 4.5 mmol/L (3.5-5.0); eGFR CKD-EPI 41.6 (>60)
[2023-11-22] MEDS: Docusate LIQ 100 MG/10 ML UDC PO SCH (21:46)
[2023-11-23 06:32] LABS: Creatinine, Serum 1.92 mg/dL (0.67-1.17); eGFR CKD-EPI 32.9 (>60)
[2023-11-23 07:19] LABS: ABS Lymphocytes 0.2 10^3/uL (1.0-4.8); ABS Monocytes 0.3 10^3/uL (0.0-1.1); ABS Neutrophils 3.5 10^3/uL (1.5-7.6); ABS Nucleated RBC 0.06 10^3/ul; Hematocrit 23.9 % (38-53); Hemoglobin 8.3 g/dL (13.2-16.3); Lymphocyte % 4.1 %; Mean Corpuscular Hemoglobin 31.9 pg (27-33); Mean Corpuscular Hgb Conc 34.9 g/dL (31-36); Mean Corpuscular Volume 91.2 fL (80-97); Mean Platelet Volume 10.1 fL (7.5-11.2); Nucleated Red Blood Cells % 1.5 %/100WBC (0.0-0.8); Platelet Count 133 10^3/uL (150-450); Red Blood Count 2.62 10^6/uL (4.06-5.63); Red Cell Distribution Width 15.4 % (12-17)
[2023-11-23] MEDS: Senna TAB 8.6 mg TAB PO PRN (19:57)
[2023-11-24 05:30] VITALS: BP 142/62
[2023-11-24 07:33] LABS: Hematocrit 25.4 % (38-53); Hemoglobin 8.7 g/dL (13.2-16.3); Mean Corpuscular Hemoglobin 31.6 pg (27-33); Mean Corpuscular Hgb Conc 34.2 g/dL (31-36); Mean Corpuscular Volume 92.3 fL (80-97); Mean Platelet Volume 9.2 fL (7.5-11.2); Platelet Count 169 10^3/uL (150-450); Red Blood Count 2.76 10^6/uL (4.06-5.63); Red Cell Distribution Width 15.9 % (12-17); White Blood Count 8.8 10^3/uL (3.6-10.2)
[2023-11-24 08:12] LABS: Calcium 8.3 mg/dL (8.6-10.3); Creatinine, Serum 1.83 mg/dL (0.67-1.17); Magnesium 2.5 mg/dL (1.9-2.7); Potassium 4.2 mmol/L (3.5-5.0); eGFR CKD-EPI 34.8 (>60)
[2023-11-24 08:19] LABS: ABS Lymphocytes 0.3 10^3/uL (1.0-4.8); ABS Monocytes 0.6 10^3/uL (0.0-1.1); ABS Neutrophils 7.9 10^3/uL (1.5-7.6); ABS Nucleated RBC 0.02 10^3/ul; Eosinophil % 0.1 %; Lymphocyte % 3.4 %; Nucleated Red Blood Cells % 0.2 %/100WBC (0.0-0.8); RBC Morphology Normal (Normal)
[2023-11-24] MEDS: Carbidopa/Levodop 25/100 MG TAB PO SCH (09:42)
[2023-11-24] MEDS ORDERED: Carbidopa/Levodop 25/100 MG TAB PO SCH ×2 (12:30→17:30)
== END 2023-11-24 08:38 | DRG 481 ==
LOC: EDHOLD 19:25 → ED 19:25 → SUATTDRO 11-19 00:05 → SSU 11-19 08:26
PROVIDERS: ADMIT Internal Medicine; ATTEND Student in an Organized Health Care Education/Training Program

== ENCOUNTER 2023-11-24 08:07 | Inpatient (IN) ==
[2023-11-24] MEDS ORDERED: Magnesium Hydroxide LIQ 30 ML UDC PO PRN (11:46)
[2023-11-24] MEDS ORDERED: Senna TAB 8.6 mg TAB PO PRN (11:46)
[2023-11-24] MEDS: Carbidopa/Levodop 25/100 MG TAB PO SCH ×2 (13:45→17:16)
[2023-11-24] MEDS: Enoxaparin 30 MG/0.3 ML SYR SUBCUT SCH (15:29)
[2023-11-25] MEDS: CMCS:Mirabegron 25 mg ER TAB (NF) PO SCH (08:55)
[2023-11-25 08:57] LABS: ALT 11 U/L (7-52); Albumin/Globulin Ratio 1.3 (1-3); Alkaline Phosphatase 41 U/L (35-149); Anion Gap 10 mmol/L (2-16); Blood Urea Nitrogen 59 mg/dL (6-24); CO2 Carbon Dioxide 28 mmol/L (22-32); Calcium 8.6 mg/dL (8.6-10.3); Chloride 107 mmol/L (101-111); Creatinine, Serum 1.55 mg/dL (0.67-1.17); Globulin 2.4 g/dL (2-4); Glucose 91 mg/dL (70-100); Sodium 145 mmol/L (135-145); Total Bilirubin 1.4 mg/dL (0.2-1.0); Total Protein 5.4 g/dL (6.4-8.9); eGFR CKD-EPI 42.5 (>60)
[2023-11-25 09:04] LABS: Hematocrit 28.6 % (38-53); Hemoglobin 9.5 g/dL (13.2-16.3); Mean Corpuscular Hemoglobin 30.7 pg (27-33); Mean Platelet Volume 9.4 fL (7.5-11.2); Platelet Count 203 10^3/uL (150-450); Red Blood Count 3.08 10^6/uL (4.06-5.63); Red Cell Distribution Width 16.2 % (12-17); White Blood Count 9.4 10^3/uL (3.6-10.2)
[2023-11-25 09:24] LABS: ABS Lymphocytes 0.4 10^3/uL (1.0-4.8); ABS Monocytes 0.7 10^3/uL (0.0-1.1); ABS Neutrophils 8.2 10^3/uL (1.5-7.6); ABS Nucleated RBC 0.02 10^3/ul; Eosinophil % 0.1 %; Lymphocyte % 4.7 %; Nucleated Red Blood Cells % 0.2 %/100WBC (0.0-0.8); RBC Morphology Normal (Normal)
[2023-11-25 10:58] LABS: Potassium Redraw 3.9 mmol/L (3.5-5.0)
[2023-11-25] MEDS: HYDROcodone/ACETAMIN 5/325 mg TAB PO PRN (11:01)
[2023-11-25] MEDS: D5NS 0.9% 1000 ml BAG 1,000 ML IV SCH (22:02)
[2023-11-26] MEDS: ceFAZolin 1 GM in Dextrose 1 GM/50 ML BAG IVPB SCH (18:02)
[2023-11-28 08:18] LABS: Hematocrit 24.7 % (38-53); Hemoglobin 8.3 g/dL (13.2-16.3); Mean Corpuscular Hemoglobin 31.2 pg (27-33); Mean Corpuscular Hgb Conc 33.5 g/dL (31-36); Mean Platelet Volume 8.3 fL (7.5-11.2); Platelet Count 219 10^3/uL (150-450); Red Blood Count 2.66 10^6/uL (4.06-5.63); Red Cell Distribution Width 15.7 % (12-17); White Blood Count 12.7 10^3/uL (3.6-10.2)
[2023-11-28] MEDS: D5NS 0.9% 1000 ml BAG 1,000 ML IV ONE (08:55)
[2023-11-28 08:58] LABS: Albumin 2.8 g/dL (3.2-5.2); Albumin/Globulin Ratio 1.2 (1-3); Calcium 8.2 mg/dL (8.6-10.3); Creatinine, Serum 1.43 mg/dL (0.67-1.17); Globulin 2.3 g/dL (2-4); Total Bilirubin 0.9 mg/dL (0.2-1.0); Total Protein 5.1 g/dL (6.4-8.9); eGFR CKD-EPI 46.8 (>60)
[2023-11-28 11:12] LABS: ABS Lymphocytes 0.2 10^3/uL (1.0-4.8); ABS Monocytes 0.4 10^3/uL (0.0-1.1); ABS Neutrophils 12.1 10^3/uL (1.5-7.6); ABS Nucleated RBC 0.02 10^3/ul; Lymphocyte % 1.2 %; Nucleated Red Blood Cells % 0.1 %/100WBC (0.0-0.8); RBC Morphology Normal (Normal)
[2023-11-28 13:22] VITALS: BP 123/35
== END 2023-11-28 13:30 | disposition other institution (70) | DRG 535 ==
LOC: PMRU 10:19
PROVIDERS: ADMIT Physical Medicine & Rehabilitation; ATTEND Physical Medicine & Rehabilitation

== ENCOUNTER 2023-11-28 13:34 | Inpatient (IN) ==
[2023-11-28] MEDS: cefTRIAXone 1 gm/50 mL D5W 1 GM/50 ML BAG IV ONE (13:55)
[2023-11-28 14:00] LABS: Hematocrit 26.2 % (38-53); Hemoglobin 8.7 g/dL (13.2-16.3); Mean Corpuscular Hemoglobin 31.3 pg (27-33); Mean Corpuscular Hgb Conc 33.3 g/dL (31-36); Mean Platelet Volume 8.6 fL (7.5-11.2); Platelet Count 236 10^3/uL (150-450); Red Blood Count 2.79 10^6/uL (4.06-5.63); Red Cell Distribution Width 15.8 % (12-17); White Blood Count 11.1 10^3/uL (3.6-10.2)
[2023-11-28] MEDS: Vancomycin 1,250 MG in NS 0.9% 250 ml 250 ML IVPB ONE (14:10)
[2023-11-28 14:47] LABS: ALT 7 U/L (7-52); Albumin 2.9 g/dL (3.2-5.2); Albumin/Globulin Ratio 1.2 (1-3); Alkaline Phosphatase 46 U/L (35-149); Anion Gap 8 mmol/L (2-16); Blood Urea Nitrogen 36 mg/dL (6-24); C Reactive Protein 106.14 mg/L (<8.01); CO2 Carbon Dioxide 31 mmol/L (22-32); Calcium 8.6 mg/dL (8.6-10.3); Chloride 108 mmol/L (101-111); Creatinine, Serum 1.37 mg/dL (0.67-1.17); Globulin 2.4 g/dL (2-4); Glucose 88 mg/dL (70-100); Sodium 147 mmol/L (135-145); Total Bilirubin 0.9 mg/dL (0.2-1.0); Total Protein 5.3 g/dL (6.4-8.9); eGFR CKD-EPI 49.3 (>60)
[2023-11-28 15:06] LABS: ABS Lymphocytes 0.3 10^3/uL (1.0-4.8); ABS Monocytes 0.4 10^3/uL (0.0-1.1); ABS Neutrophils 10.4 10^3/uL (1.5-7.6); ABS Nucleated RBC 0.01 10^3/ul; Lymphocyte % 2.8 %; Nucleated Red Blood Cells % 0.1 %/100WBC (0.0-0.8)
[2023-11-28] MEDS: Lactated Ringers SEPSIS* BAG 1,980 ML IV ONE (15:16)
[2023-11-28] MEDS: Iodixanol (CONTRAST) 320 MG/ML 100 ML SDV IV ONE (15:46)
[2023-11-28 16:56] LABS: INR 1.25 (0.85-1.14)
[2023-11-28 17:36] LABS: Potassium Redraw 3.6 mmol/L (3.5-5.0)
[2023-11-28 18:09] LABS: High Sensitivity Troponin 1 Hr 54 pg/mL (<20)
[2023-11-28] MEDS: Carbidopa/Levodop 25/100 MG TAB PO SCH (18:58)
[2023-11-28] MEDS ORDERED: Vancomycin per Pharmacy 1 EA NOTE FOLLOW UP SCH (19:00)
[2023-11-28 22:08] LABS: Urine Appearance Clear; Urine Bilirubin Negative (Negative); Urine Blood Trace (Negative); Urine Color Light-Yellow; Urine Glucose Negative (Negative); Urine Ketones Trace (Negative); Urine Nitrite Negative (Negative); Urine Protein Trace (Negative); Urine Specific Gravity 1.043 (1.002-1.030); Urine Urobilinogen Negative (Negative)
[2023-11-29] MEDS: Cefepime 1 GM in Dextrose 1 GM/50 ML BAG IV SCH ×2 (00:15→00:30)
[2023-11-29 06:33] LABS: ABS Lymphocytes 0.5 10^3/uL (1.0-4.8); ABS Monocytes 0.3 10^3/uL (0.0-1.1); ABS Neutrophils 10.8 10^3/uL (1.5-7.6); ABS Nucleated RBC 0.01 10^3/ul; Hemoglobin 8.5 g/dL (13.2-16.3); Mean Corpuscular Hemoglobin 31.4 pg (27-33); Mean Corpuscular Hgb Conc 33.8 g/dL (31-36); Mean Platelet Volume 8.5 fL (7.5-11.2); Nucleated Red Blood Cells % 0.1 %/100WBC (0.0-0.8); Platelet Count 199 10^3/uL (150-450); Red Blood Count 2.69 10^6/uL (4.06-5.63); Red Cell Distribution Width 15.7 % (12-17); White Blood Count 11.6 10^3/uL (3.6-10.2)
[2023-11-29] MEDS: Enoxaparin 30 MG/0.3 ML SYR SUBCUT SCH (08:08)
[2023-11-29] MEDS: Cholecalciferol (VIT D3) 1,000 unit TAB PO SCH (08:08)
[2023-11-29] MEDS: Aspirin EC 81 mg TAB.EC (enteric coated) PO SCH (08:08)
[2023-11-29] MEDS: Carbidopa/Levodop 25/100 MG TAB PO SCH (08:12)
[2023-11-29 08:28] LABS: Calcium 7.7 mg/dL (8.6-10.3); Creatinine, Serum 1.14 mg/dL (0.67-1.17); Potassium 3.6 mmol/L (3.5-5.0); eGFR CKD-EPI 61.5 (>60)
[2023-11-29] MEDS: CMC:Mirabegron 25 mg ER TAB (NF) PO SCH (08:45)
[2023-11-29] MEDS: Vancomycin 500 MG in NS 0.9% 250 ML IVPB SCH (15:05)
[2023-11-29] MEDS: Lactated Ringers 1000 ml BAG 1,000 ML IV ONE (15:05)
[2023-11-29] MEDS: HYDROcodone/ACETAMIN 5/325 mg TAB PO PRN (22:23)
[2023-11-30 09:36] LABS: ABS Lymphocytes 0.5 10^3/uL (1.0-4.8); ABS Monocytes 0.3 10^3/uL (0.0-1.1); ABS Neutrophils 16.2 10^3/uL (1.5-7.6); ABS Nucleated RBC 0.01 10^3/ul; Eosinophil % 0.1 %; Hematocrit 32.9 % (38-53); Hemoglobin 10.6 g/dL (13.2-16.3); Lymphocyte % 2.8 %; Mean Corpuscular Hemoglobin 30.2 pg (27-33); Mean Corpuscular Hgb Conc 32.3 g/dL (31-36); Mean Corpuscular Volume 93.3 fL (80-97); Mean Platelet Volume 8.8 fL (7.5-11.2); Platelet Count 275 10^3/uL (150-450); Red Blood Count 3.52 10^6/uL (4.06-5.63); Red Cell Distribution Width 16.5 % (12-17); White Blood Count 17.1 10^3/uL (3.6-10.2)
[2023-11-30 10:32] LABS: Calcium 8.3 mg/dL (8.6-10.3); Creatinine, Serum 1.18 mg/dL (0.67-1.17); Magnesium 2.2 mg/dL (1.9-2.7); Potassium 3.9 mmol/L (3.5-5.0)
[2023-11-30 15:29] LABS: Creatinine, Serum 1.34 mg/dL (0.67-1.17); Vancomycin Trough 5.7 mcg/mL; eGFR CKD-EPI 50.6 (>60)
[2023-11-30 16:35] VITALS: BP 156/60
[2023-11-30] MEDS: Vancomycin Trough Check NOTE FOLLOW UP ONE (17:37)
[2023-11-30] MEDS: Vancomycin 750 MG in NS 0.9% 250 ML IVPB SCH (18:28)
[2023-11-30] MEDS ORDERED: Ondansetron ODT 4 mg TAB 4 MG TAB SL PRN (19:12)
[2023-12-01] MEDS: Morphine ORAL CONCENTRATE 5 MG/0.25 ML ORAL.SYRIN SL PRN ×2 (00:02→09:56)
[2023-12-01] MEDS: Oral Rinse (Biotene)(NF) 237 ML or 473 ML ORAL RINSE BTL MT SCH (01:32)
[2023-12-02] MEDS ORDERED: LORazepam 2 MG/ML 1 mL Syringe IV ONE (00:56)
[2023-12-02] MEDS ORDERED: Lorazepam PYXIS KEY PRN (01:05)
[2023-12-02] MEDS: LORazepam 2 mg VIAL 1 ml IV PUSH ONE (01:11)
[2023-12-03] MEDS ORDERED: Vancomycin Trough Check NOTE FOLLOW UP ONE (11:30)
== END 2023-12-04 12:25 | disposition hospice, home (50) | DRG 871 ==
LOC: ED 13:34 → EDHOLD 13:34 → MED 18:29
PROVIDERS: ADMIT Internal Medicine; ATTEND Hospitalist